=== PATIENT | male | born 1975 | race Caucasian/White ===

== ENCOUNTER → 2016-06-29 | Outpatient (CLI) | payer OTHER ==
[2016-06-29 13:41] LABS: HEMOGLOBIN 12.7 gm/dl (14.0-17.5); RED BLOOD COUNT 4.5 M/UL (4.20-5.50); WHITE BLOOD COUNT 8.2 K/UL (4.5-11.0)
== END ==
LOC: LAB 13:00
PROVIDERS: Psychiatry & Neurology Psychiatry
DX: F31.9 Bipolar disorder, unspecified (principal)
CPT/HCPCS: 36415; 80076; 80156; 85027

== ENCOUNTER → 2020-06-07 | Outpatient (CLI) | payer MEDICARE, OTHER ==
[~2020-06-07] MED LIST: AMARYL 2MG TABLE2 MG PO; BUSPAR 10MG10 MG PO; CARDIZEM CD240 MG PO; CYANOCOBALAMIN IM; FEOSOL325 MG PO; FIBERCON625 MG PO; FISH OIL 1,0001 EAC3 PO; GLUCOPHAGE1000 MG PO; IBUPROFEN800 MG PO; LIORESAL TAB 1010 MG PO; LOPRESSOR100 MG PO; LOSARTAN HCTZ PO; NOVOLOG MI100 UNIT/1 SC; PRAVACHOL80 MG PO; PROTONIX40 MG PO; PROZAC20 MG PO; TRADJENTA5 MG PO; TRILEPTAL600 MG PO
[2020-06-07 12:28] LABS: BUN/CREATININE RATIO 17 (0-10)
[2020-06-08 20:08] LABS: CHOLESTEROL, TOTAL 179 mg/dL (100-199); HDL SIZE 8.7 nm (>=9.2); HDL-C 37 mg/dL (>39); HDL-P (TOTAL) 29.4 umol/L (>=30.5); LARGE HDL-P 2.3 umol/L (>=4.8); LARGE VLDL-P 8.2 nmol/L (<=2.7); LDL-C 100 mg/dL (0-99); LDL-P 1244 nmol/L (<1000); LP-IR SCORE 75 (<=45); SMALL LDL-P 894 nmol/L (<=527); TRIGLYCERIDES 247 mg/dL (0-149); VLDL SIZE 48.7 nm (<=46.6)
== END ==
LOC: LAB 10:46
PROVIDERS: Emergency Medicine
DX: E11.65 Type 2 diabetes mellitus with hyperglycemia (principal); E11.9 Type 2 diabetes mellitus without complications; I10 Essential (primary) hypertension; E78.2 Mixed hyperlipidemia; D50.8 Other iron deficiency anemias; E11.69 Type 2 diabetes mellitus with other specified complication; K21.9 Gastro-esophageal reflux disease without esophagitis
CPT/HCPCS: 36415; 80053; 80061; 83036; 83704; 84550

== ENCOUNTER → 2020-12-10 | Outpatient (CLI) | payer MEDICARE, OTHER ==
[2020-12-10 13:04] LABS: BUN/CREATININE RATIO 16 (0-10)
== END ==
LOC: LAB 11:48
PROVIDERS: Emergency Medicine
DX: E11.65 Type 2 diabetes mellitus with hyperglycemia (principal); I10 Essential (primary) hypertension; E78.2 Mixed hyperlipidemia
CPT/HCPCS: 36415; 80048; 83036

== ENCOUNTER → 2021-01-27 | Outpatient (CLI) | payer MEDICARE, OTHER ==
[2021-01-27 13:27] LABS: BUN/CREATININE RATIO 15 (0-10)
== END ==
LOC: LAB 11:35
PROVIDERS: Emergency Medicine
DX: E11.9 Type 2 diabetes mellitus without complications (principal); E78.2 Mixed hyperlipidemia; I10 Essential (primary) hypertension
CPT/HCPCS: 36415; 80053

== ENCOUNTER → 2021-06-04 | Outpatient (CLI) | payer MEDICARE, OTHER | LOC: HEART 5 09:48 | DX: R07.9 Chest pain, unspecified (principal); R94.31 Abnormal electrocardiogram [ECG] [EKG]; I34.0 Nonrheumatic mitral (valve) insufficiency | CPT/HCPCS: 93306 ==

== ENCOUNTER → 2021-09-03 | Outpatient (CLI) | payer MEDICARE, OTHER ==
[2021-09-03 12:23] LABS: HEMOGLOBIN 13.4 gm/dl (14.0-17.5); RED BLOOD COUNT 4.52 M/UL (4.20-5.50); WHITE BLOOD COUNT 10.2 K/UL (4.5-11.0)
[2021-09-03 12:58] LABS: BUN/CREATININE RATIO 26 (0-10)
[2021-09-04 10:14] LABS: CREATININE, URINE 97.9 mg/dL (Not Estab.)
[2021-09-05 11:13] LABS: CHOLESTEROL, TOTAL 207 mg/dL (100-199); HDL SIZE 8.7 nm (>=9.2); HDL-C 36 mg/dL (>39); HDL-P (TOTAL) 25.3 umol/L (>=30.5); LARGE HDL-P 1.9 umol/L (>=4.8); LARGE VLDL-P 3.1 nmol/L (<=2.7); LDL SIZE 20.2 nm (>20.5); LDL SIZE 20.2 nm (>=20.8); LDL-C 139 mg/dL (0-99); LDL-P 1750 nmol/L (<1000); LP-IR SCORE 63 (<=45); SMALL LDL-P 1144 nmol/L (<=527); TRIGLYCERIDES 178 mg/dL (0-149); VLDL SIZE 43.5 nm (<=46.6)
== END ==
LOC: LAB 11:24
PROVIDERS: Emergency Medicine
DX: E53.8 Deficiency of other specified B group vitamins (principal); I10 Essential (primary) hypertension; K21.9 Gastro-esophageal reflux disease without esophagitis; E78.2 Mixed hyperlipidemia; E11.9 Type 2 diabetes mellitus without complications
CPT/HCPCS: 36415; 80053; 80061; 82043; 82570; 82607; 83036; 83704; 84443; 84550; 85025

== ENCOUNTER → 2021-09-11 | Outpatient (CLI) | payer MEDICARE, OTHER | LOC: EXRD 08:22 | DX: K76.9 Liver disease, unspecified (principal); R93.5 Abnormal findings on diagnostic imaging of other abdominal regions, including retroperitoneum | CPT/HCPCS: 76705 ==